=== PATIENT | female | born 1965 | race Caucasian/White ===

== ENCOUNTER 2017-04-09 17:16 | Emergency (ER) | payer BC ==
[2017-04-09 17:52] VITALS: BP 174/85
--- NOTE | 2017-04-09 18:07 | UC ---
Skin Complaint HPI - HPI Summary HPI Summary: right thumb injury on a mandolin about 2 hours ago - History of Current Complaint Chief Complaint: UCLaceration Time Seen by Provider: 04/09/17 17:43 Stated Complaint: RIGHT THUMB INJURY Hx Obtained From: Patient Hx Last Menstrual Period: ~03/17/17 ?: No Onset/Duration: Sudden Onset, Lasting Hours - 2, Still Present Timing: Constant Onset Severity: Moderate Current Severity: Moderate Location: Discrete Character: Pain Aggravating Factor(s): Nothing Alleviating Factor(s): Nothing Associated Signs & Symptoms: Positive: Negative - Allergy/Home Medications Allergies/Adverse Reactions: Allergies Allergy/AdvReac Type Severity Reaction Status Date / Time Penicillins Allergy Rash Verified 04/09/17 17:48 Home Medications: Home Medications NK [No Home Medications Reported] 04/09/17 [History Confirmed 04/09/17] Review of Systems Constitutional: Negative Skin: Other - skin avulsion right thumb Eyes: Negative ENT: Negative Respiratory: Negative Cardiovascular: Negative Gastrointestinal: Negative Genitourinary: Negative Motor: Negative Neurovascular: Negative Musculoskeletal: Negative Neurological: Negative Psychological: Negative Is Patient Immunocompromised?: No All Other Systems Reviewed And Are Negative: Yes PMH/Surg Hx/FS Hx/Imm Hx Previously Healthy: Yes - Surgical History Surgical History: Yes Surgery Procedure, Year, and Place: Left Ankle Cyst, 2007, [facility]; Ovarian Cyst , 1982, [facility] - Family History Known Family History: Positive: None - Social History Occupation: Employed Full-time Lives: With Family Alcohol Use: Weekly Substance Use Type: None Smoking Status (MU): Never Smoked Tobacco - Immunization History Most Recent Influenza Vaccination: Not the Season Most Recent Tetanus Shot: "I don't remeber, but I'm pretty sure it's been within ten years." Physical Exam Triage Information Reviewed: Yes Appearance: Well-Appearing, No Pain Distress, Well-Nourished Vital Signs: Initial Vital Signs Temp 98.5 F 04/09/17 17:47 Pulse 86 04/09/17 17:47 Resp 18 04/09/17 17:47 BP 174/85 04/09/17 17:47 Pulse Ox 100 04/09/17 17:47 Vital Signs Reviewed: Yes Eye Exam: Normal Eyes: Positive: Conjunctiva Clear ENT Exam: Normal ENT: Positive: Normal ENT inspection, Hearing grossly normal. Negative: Nasal drainage, Trismus, Muffled voice, Hoarse voice Dental Exam: Normal Neck exam: Normal Neck: Positive: Supple, Nontender, No Lymphadenopathy Respiratory Exam: Normal Respiratory: Positive: Chest non-tender, No respiratory distress, No accessory muscle use Cardiovascular Exam: Normal Cardiovascular: Positive: RRR, Pulses Normal, Brisk Capillary Refill Musculoskeletal Exam: Normal Musculoskeletal: Positive: Strength Intact, ROM Intact, No Edema Neurological Exam: Normal Neurological: Positive: Alert, Muscle Tone Normal Psychological Exam: Normal Skin Exam: Normal Course/Dx - Course Course Of Treatment: dressing and lula to avulsion , follow blood pressure with pcp - Diagnoses Provider Diagnoses: Skin avulsion right thumb, elevated blood pressure with dx of hypertension Discharge - Discharge Plan Condition: Stable Disposition: HOME Patient Education Materials: Skin Avulsion (ED), Hypertension (ED) Referrals: Kwaku Mendenhall MD [Primary Care Provider] - 2 Weeks
== END 2017-04-09 18:18 | disposition home or self-care (01) ==
LOC: UCCORT 17:16
DX: S61.001A Unspecified open wound of right thumb without damage to nail, initial encounter (principal); W26.8XXA Contact with other sharp object(s), not elsewhere classified, initial encounter; Y93.9 Activity, unspecified; Y92.9 Unspecified place or not applicable; Y99.9 Unspecified external cause status; I10 Essential (primary) hypertension
CPT/HCPCS: 99202; G0463